=== PATIENT | male | born 1940 | race Caucasian/White ===

== ENCOUNTER 2020-09-28 13:43 | Outpatient (REF) | payer SELFPAY | END 2020-09-28 13:44 | disposition home or self-care (01) | LOC: HO.HAP 13:43 | PROVIDERS: PCP Internal Medicine; Referring Provider Internal Medicine; Visit Provider Internal Medicine | DX: Z13.89 Encounter for screening for other disorder (principal) | CPT/HCPCS: 92700 ==

== ENCOUNTER 2020-10-08 14:58 | Outpatient (REF) | payer MEDICARE, SELFPAY ==
[2020-10-08 16:42] LABS: Hematocrit 42.2 % (42-52); Hemoglobin 13.7 g/dl (14.0-18.0); Mean Corpuscular HGB Conc 32.5 g/dl (31.0-36.0); Mean Corpuscular Hemoglobin 32.9 pg (27.0-33.0); Mean Corpuscular Volume 101.2 fL (80-98); Mean Platelet Volume 9.8 fL (9.4-12.4); Platelet Count 200 X10*3/uL (160-400); Red Blood Count 4.17 X10*6/uL (4.60-5.80); Red Cell Distribution Width 13.5 % (11.0-16.0); White Blood Count 8.8 X10*3/uL (4.8-10.8)
[2020-10-08 16:47] LABS: Estimated Average Glucose 137 mg/dL; Hemoglobin A1c % 6.4 %
[2020-10-08 17:06] LABS: Alanine Aminotransferase 25 U/L (0-40); Albumin Level 3.9 g/dL (3.5-5.0); Alkaline Phosphatase 63 U/L (39-117); Anion Gap 12 (12-20); Aspartate Amino Transferase 22 U/L (5-37); Bilirubin Total 0.6 mg/dL (0.0-1.0); Blood Urea Nitrogen 17 mg/dL (9-16); Calcium 8.8 mg/dL (8.4-10.2); Carbon Dioxide 27 mmol/L (22-29); Chloride 104 mmol/L (96-108); Estimated Glomerular Filt Rate 51; Glucose Random 106 mg/dL (60-115); Potassium 4.2 mmol/l (3.3-5.1); Sodium 139 mmol/L (135-145); Total Protein 7.2 g/dL (6.5-8.0)
[2020-10-08 17:16] LABS: Uric Acid 5.5 mg/dL (3.4-7.0)
[2020-10-08 17:50] LABS: Folate > 20.0 ng/mL (> or = 4.0); Vitamin B12 767 pg/mL (200-900)
== END 2020-10-08 14:59 | disposition home or self-care (01) ==
LOC: HO.HMGCLDS 14:58
PROVIDERS: PCP Internal Medicine; Visit Provider Internal Medicine
DX: I10 Essential (primary) hypertension (principal); F03.90 Unspecified dementia, unspecified severity, without behavioral disturbance, psychotic disturbance, mood disturbance, and anxiety; E11.9 Type 2 diabetes mellitus without complications; E53.8 Deficiency of other specified B group vitamins
CPT/HCPCS: 36415; 80053; 82607; 82746; 83036; 84550; 85027

== ENCOUNTER 2020-10-15 07:59 | Outpatient (REF) | payer SELFPAY ==
--- NOTE | 2020-10-15 09:00 | MHC.AU.P13 ---
Hearing Instrument Follow-Up- Binaural Date of Visit: 10/15/20 Right Ear: Fashion Consultant: Phonak Model: AUDEO M90-312 Serial Number: [id number] Warranty: 01/18/2022 Battery Size: 312 Color: [place] [employer] Supervisor: 2S Type of Mold: CANAL LOCK SLIM TIP #[id number] Type of Wax Guard: CERUSTOP Dispensed By: [facility] Date of Fittin11/06/2018 Left Ear: Fashion Consultant: Phonak Model: AUDEO M90-312 Serial Number: [id number] Warranty: 01/18/2022 Battery Size: 312 Color: [place] [employer] Supervisor: 2S Type of Mold: CANAL LOCK SLIM TIP#[id number] Type of Wax Guard: CERUSTOP Dispensed By: [facility] Date of Fittin11/06/2018 Follow-Up Summary: Patient arrived to apple picker his slim tips. The left slim tip had previously been sent for courtesy repair. The right side was cracked, and a new slim tip had been ordered. The left hearing aid was in our repair drawer, and was given back to the patient. The new slim tips were coupled to the hearing aids. Patient reports they fit well and were comfortable. Paid $115, as quoted. Recommendations: Hearing instrument maintenance in 6 months, or sooner if needed. Diagnosis Code(s): Primary Diagnosis: H90.3 Bilateral Sensorineural Hearing Loss Services Performed: [facility] [place]: 115.00 Signature: Provider: Kitty Castillo CCC-A
== END 2020-10-15 08:00 | disposition home or self-care (01) ==
LOC: HO.HAP 07:59
PROVIDERS: PCP Internal Medicine; Referring Provider Internal Medicine; Visit Provider Internal Medicine
DX: Z46.1 Encounter for fitting and adjustment of hearing aid (principal); H90.3 Sensorineural hearing loss, bilateral
CPT/HCPCS: V5264

== ENCOUNTER 2021-05-30 16:04 | Outpatient (REF) | payer SELFPAY | END 2021-05-30 16:05 | disposition home or self-care (01) | LOC: HO.HAP 16:04 | PROVIDERS: Visit Provider Internal Medicine | DX: Z13.89 Encounter for screening for other disorder (principal) ==

== ENCOUNTER 2021-10-24 14:43 | Outpatient (REF) | payer MEDICARE, SELFPAY ==
[2021-10-24 16:49] LABS: Hematocrit 41.7 % (42.0-52.0); Mean Corpuscular HGB Conc 31.2 g/dl (31.0-36.0); Mean Corpuscular Hemoglobin 30.4 pg (27.0-33.0); Mean Corpuscular Volume 97.7 fL (80.0-98.0); Mean Platelet Volume 10.5 fL (9.4-12.4); Platelet Count 246 X10*3/uL (160-400); Red Blood Count 4.27 X10*6/uL (4.60-5.80); Red Cell Distribution Width 14.9 % (11.0-16.0); White Blood Count 7.9 X10*3/uL (4.8-10.8)
[2021-10-24 16:55] LABS: Estimated Average Glucose 126 mg/dL
[2021-10-24 17:10] LABS: Alanine Aminotransferase 21 U/L (0-40); Albumin Level 3.8 g/dL (3.5-5.0); Alkaline Phosphatase 61 U/L (39-117); Anion Gap 15 (12-20); Aspartate Amino Transferase 23 U/L (5-37); Bilirubin Total 0.3 mg/dL (0.0-1.0); Blood Urea Nitrogen 20 mg/dL (9-16); Carbon Dioxide 27 mmol/L (22-29); Chloride 103 mmol/L (96-108); Estimated Glomerular Filt Rate 60; Glucose Random 125 mg/dL (60-115); Iron 47 mcg/dL (45-160); Percent Iron Saturation 16 % (15-50); Potassium 4.8 mmol/L (3.3-5.1); Sodium 140 mmol/L (135-145); Total Iron Binding Capacity 301 mcg/dL (228-428); Total Protein 7.3 g/dL (6.5-8.0); Unsaturated Iron Binding 254 ug/dL
[2021-10-24 17:30] LABS: Vitamin D 25-OH Total 30.3 ng/mL (>30)
[2021-10-24 17:49] LABS: Vitamin B12 689 pg/mL (200-900)
[2021-10-24 17:50] LABS: Folate > 20.0 ng/mL (> or = 4.0)
== END 2021-10-24 14:44 | disposition home or self-care (01) ==
LOC: HO.HMGCLDS 14:43
PROVIDERS: PCP Internal Medicine; Visit Provider Internal Medicine
DX: E11.9 Type 2 diabetes mellitus without complications (principal); E53.8 Deficiency of other specified B group vitamins; E55.9 Vitamin D deficiency, unspecified; E78.5 Hyperlipidemia, unspecified
CPT/HCPCS: 36415; 80053; 82306; 82607; 82746; 83036; 83540; 85027

== ENCOUNTER 2021-12-17 14:43 | Outpatient (REF) | payer MEDICARE, SELFPAY ==
[2021-12-17 15:38] LABS: Appearance Urine CLEAR; Color Urine YELLOW; Glucose Urine UA NEG (NEG); Leukocyte Esterase Urine NEG (NEG); Nitrite Urine NEG (NEG); PH 5.5 (5.0-8.0); Specific Gravity - Urine 1.025 (1.005-1.025); Urine Blood NEG (NEG); Urine Ketones NEG (NEG); Urine Protein NEG (NEG-TRACE)
== END 2021-12-17 14:44 | disposition home or self-care (01) ==
LOC: HO.HMGCLNP 14:43
PROVIDERS: Visit Provider Internal Medicine
DX: R30.0 Dysuria (principal)
CPT/HCPCS: 81003

== ENCOUNTER 2022-03-18 14:32 | Outpatient (REF) | payer MEDICARE, SELFPAY ==
[2022-03-18 15:56] LABS: Anion Gap 15 (12-20); Blood Urea Nitrogen 35 mg/dL (9-16); Carbon Dioxide 25 mmol/L (22-29); Chloride 104 mmol/L (96-108); Estimated Glomerular Filt Rate 47; Potassium 4.8 mmol/L (3.3-5.1); Sodium 139 mmol/L (135-145)
== END 2022-03-18 14:33 | disposition home or self-care (01) ==
LOC: HO.HMGCLDS 14:32
PROVIDERS: PCP Internal Medicine; Visit Provider Internal Medicine
DX: R94.4 Abnormal results of kidney function studies (principal)
CPT/HCPCS: 36415; 80051; 82565; 84520

== ENCOUNTER 2022-06-02 14:49 | Outpatient (REF) | payer MEDICARE, SELFPAY ==
[2022-06-02 16:21] LABS: MANUAL DIFF FLAG NO
[2022-06-02 16:24] LABS: Basophils Absolute Auto 0.1 X10*3/uL (0.0-0.2); Basophils Percent Auto 0.7 % (0-2); Eosinophils Absolute Auto 0.6 X10*3/uL (0.0-0.4); Eosinophils Percent Auto 9.1 % (0-4); Hematocrit 41.8 % (42.0-52.0); Hemoglobin 13.7 g/dl (14.0-18.0); Imm Gran Abs Auto 0.01 X10*3/uL (0.00-0.03); Imm Gran Pct Auto 0.1 % (0.0-0.4); Lymphocytes Absolute Auto 1.7 X10*3/uL (1.2-4.9); Lymphocytes Percent Auto 25.9 % (20-40); Mean Corpuscular HGB Conc 32.8 g/dl (31.0-36.0); Mean Corpuscular Hemoglobin 32.5 pg (27.0-33.0); Mean Corpuscular Volume 99.1 fL (80.0-98.0); Mean Platelet Volume 10.7 fL (9.4-12.4); Monocytes Absolute Auto 0.8 X10*3/uL (0.1-1.2); Monocytes Percent Auto 11.7 % (2-11); Neutrophils Absolute Auto 3.5 x10*3/uL (2.0-8.3); Neutrophils Percent Auto 52.5 % (45-73); Platelet Count 184 X10*3/uL (160-400); Red Blood Count 4.22 X10*6/uL (4.60-5.80); Red Cell Distribution Width 14.9 % (11.0-16.0); White Blood Count 6.7 X10*3/uL (4.8-10.8)
[2022-06-02 16:47] LABS: Alanine Aminotransferase 15 U/L (0-40); Albumin Level 3.9 g/dL (3.5-5.0); Alkaline Phosphatase 45 U/L (39-117); Anion Gap 13 (12-20); Aspartate Amino Transferase 21 U/L (5-37); Bilirubin Total 0.4 mg/dL (0.0-1.0); Blood Urea Nitrogen 20 mg/dL (9-16); Calcium 8.9 mg/dL (8.4-10.2); Carbon Dioxide 25 mmol/L (22-29); Chloride 108 mmol/L (96-108); Cholesterol 120 mg/dL; Estimated Average Glucose 131 mg/dL; Estimated Glomerular Filt Rate > 60; Glucose Random 98 mg/dL (60-115); HDL Cholesterol 32 mg/dL; Hemoglobin A1c % 6.2 %; Iron 48 mcg/dL (45-160); LDL Cholesterol Calculated 24 mg/dl; Percent Iron Saturation 16 % (15-50); Potassium 4.1 mmol/L (3.3-5.1); Sodium 142 mmol/L (135-145); Total Iron Binding Capacity 304 mcg/dL (228-428); Total Protein 6.8 g/dL (6.5-8.0); Triglycerides 324 mg/dL; Unsaturated Iron Binding 256 ug/dL
[2022-06-02 17:18] LABS: Vitamin B12 497 pg/mL (200-900)
== END 2022-06-02 14:50 | disposition home or self-care (01) ==
LOC: HO.HMGCLDS 14:49
PROVIDERS: PCP Internal Medicine; Visit Provider Internal Medicine
DX: E11.9 Type 2 diabetes mellitus without complications (principal); I10 Essential (primary) hypertension; I50.9 Heart failure, unspecified; J84.10 Pulmonary fibrosis, unspecified; E78.5 Hyperlipidemia, unspecified; E53.8 Deficiency of other specified B group vitamins
CPT/HCPCS: 36415; 80053; 80061; 82607; 83036; 83540; 85025

== ENCOUNTER 2022-08-30 15:19 | Outpatient (REF) | payer MEDICARE, SELFPAY ==
[2022-08-30 16:26] LABS: MANUAL DIFF FLAG NO
[2022-08-30 16:38] LABS: Estimated Average Glucose 134 mg/dL; Hemoglobin A1c % 6.3 %
[2022-08-30 16:42] LABS: Basophils Absolute Auto 0.1 X10*3/uL (0.0-0.2); Basophils Percent Auto 0.8 % (0-2); Eosinophils Absolute Auto 0.3 X10*3/uL (0.0-0.4); Eosinophils Percent Auto 4.4 % (0-4); Hematocrit 42.2 % (42.0-52.0); Hemoglobin 13.8 g/dl (14.0-18.0); Imm Gran Abs Auto 0.03 X10*3/uL (0.00-0.03); Imm Gran Pct Auto 0.4 % (0.0-0.4); Lymphocytes Absolute Auto 1.8 X10*3/uL (1.2-4.9); Lymphocytes Percent Auto 24.8 % (20-40); Mean Corpuscular HGB Conc 32.7 g/dl (31.0-36.0); Mean Corpuscular Hemoglobin 32.2 pg (27.0-33.0); Mean Corpuscular Volume 98.4 fL (80.0-98.0); Mean Platelet Volume 11.2 fL (9.4-12.4); Monocytes Absolute Auto 0.8 X10*3/uL (0.1-1.2); Neutrophils Absolute Auto 4.3 x10*3/uL (2.0-8.3); Neutrophils Percent Auto 58.6 % (45-73); Platelet Count 151 X10*3/uL (160-400); Red Blood Count 4.29 X10*6/uL (4.60-5.80); Red Cell Distribution Width 13.8 % (11.0-16.0); White Blood Count 7.4 X10*3/uL (4.8-10.8)
[2022-08-30 16:59] LABS: Alanine Aminotransferase 18 U/L (0-40); Albumin Level 3.8 g/dL (3.5-5.0); Alkaline Phosphatase 48 U/L (39-117); Anion Gap 13 (12-20); Aspartate Amino Transferase 24 U/L (5-37); Bilirubin Total 0.6 mg/dL (0.0-1.0); Blood Urea Nitrogen 25 mg/dL (9-16); Carbon Dioxide 27 mmol/L (22-29); Chloride 106 mmol/L (96-108); Estimated Glomerular Filt Rate 52; Glucose Fasting 109 mg/dL (60-99); Potassium 4.4 mmol/L (3.3-5.1); Sodium 142 mmol/L (135-145); Total Protein 6.7 g/dL (6.5-8.0)
== END 2022-08-30 15:20 | disposition home or self-care (01) ==
LOC: HO.HMGCLDS 15:19
PROVIDERS: PCP Internal Medicine; Visit Provider Internal Medicine
DX: E78.5 Hyperlipidemia, unspecified (principal); E11.9 Type 2 diabetes mellitus without complications
CPT/HCPCS: 36415; 80053; 83036; 85025

== ENCOUNTER → 2023-01-18 14:56 | Outpatient (BNVA) | payer MEDICARE, SELFPAY | PROVIDERS: PCP Internal Medicine; Visit Provider Nurse Practitioner Family | DX: G31.84 Mild cognitive impairment of uncertain or unknown etiology (principal) | CPT/HCPCS: 99202 ==

== ENCOUNTER 2023-02-07 09:53 | Outpatient (REF) | payer MEDICARE, SELFPAY ==
--- NOTE | ~2023-02-07 | XR_ITS ---
EXAMINATION: XR CHEST CLINICAL INFORMATION: Shortness of breath. COMPARISON: 08/07/2018 chest radiographs. TECHNIQUE: 2 views of the chest were obtained. FINDINGS: Mild patchy opacities are seen bilaterally, left greater than right. The heart and mediastinal structures are unremarkable. XR/XR chest 2V IMPRESSION: Mild patchy opacities bilaterally, some of which are similar to the 2018 study, social in the right upper lobe. This could represent advancement of chronic interstitial disease however an acute on chronic infectious/inflammatory process cannot be excluded. Short-term radiographic follow-up is recommended after treatment to assess for change.
[2023-02-07 11:43] LABS: Hematocrit 40.2 % (42.0-52.0); Hemoglobin 13.1 g/dl (14.0-18.0); Mean Corpuscular HGB Conc 32.6 g/dl (31.0-36.0); Mean Corpuscular Hemoglobin 31.7 pg (27.0-33.0); Mean Corpuscular Volume 97.3 fL (80.0-98.0); Mean Platelet Volume 10.6 fL (9.4-12.4); Platelet Count 185 X10*3/uL (160-400); Red Blood Count 4.13 X10*6/uL (4.60-5.80); Red Cell Distribution Width 15.2 % (11.0-16.0); White Blood Count 10.5 X10*3/uL (4.8-10.8)
[2023-02-07 12:23] LABS: Alanine Aminotransferase 12 U/L (0-40); Albumin Level 3.5 g/dL (3.5-5.0); Alkaline Phosphatase 62 U/L (39-117); Anion Gap 13 (12-20); Aspartate Amino Transferase 16 U/L (5-37); Bilirubin Direct 0.3 mg/dL (0.0-0.5); Bilirubin Total 1.1 mg/dL (0.0-1.0); Blood Urea Nitrogen 18 mg/dL (9-16); Calcium 8.6 mg/dL (8.4-10.2); Carbon Dioxide 27 mmol/L (22-29); Chloride 108 mmol/L (96-108); Cholesterol 139 mg/dL; Estimated Glomerular Filt Rate 58; Glucose Random 127 mg/dL (60-115); HDL Cholesterol 40 mg/dL; LDL Cholesterol Calculated 72 mg/dl; Potassium 4.1 mmol/L (3.3-5.1); Sodium 144 mmol/L (135-145); Total Protein 6.5 g/dL (6.5-8.0); Triglycerides 136 mg/dL
[2023-02-07 13:07] LABS: Erythrocyte Sedimentation Rate 79 MM/HR (0-15)
== END 2023-02-07 09:54 | disposition home or self-care (01) ==
LOC: HO.HMGCX 09:53
PROVIDERS: PCP Internal Medicine; Visit Provider Internal Medicine
DX: R06.02 Shortness of breath (principal); I10 Essential (primary) hypertension
CPT/HCPCS: 36415; 71046; 80048; 80061; 80076; 85027; 85652

== ENCOUNTER 2023-02-17 14:04 | Outpatient (REF) | payer MEDICARE, SELFPAY ==
[2023-02-17 15:56] LABS: Appearance Urine Clear; Color Urine Yellow; Glucose Urine UA Negative (Negative); Leukocyte Esterase Urine Moderate (2+) (Negative); Nitrite Urine Negative (Negative); PH 5.5 (5.0-9.0); Specific Gravity - Urine 1.025 (1.005-1.025); UMIC TRIGGER UACC YES; Urine Blood Negative (Negative); Urine Ketones Trace mg/dL (Negative); Urine Protein Trace mg/dL (Neg-Trace)
[2023-02-17 16:06] LABS: Bacteria Urine None Seen (None Seen); RBC Urine 0-2 /HPF (0-2); UACC Culture Trigger YES
== END 2023-02-17 14:05 | disposition home or self-care (01) ==
LOC: HO.HMGCLNP 14:04
PROVIDERS: Visit Provider Internal Medicine
DX: R39.15 Urgency of urination (principal)
CPT/HCPCS: 81001; 81003; 87086

== ENCOUNTER 2023-02-28 06:34 | Day surgery (SDC) | payer MEDICARE, SELFPAY ==
--- NOTE | 2023-02-27 13:41 | HO.ANESPROP2 ---
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 No EP issue or HF symptoms so treatment deferred. Last cardiac office visit 11/2022. Stable. 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) Vitamin D deficiency (Acute) Vitamin B12 deficiency (Acute) Hyperlipidemia (Acute) Diabetes (Acute) Past Medical History Medical History CHF (congestive heart failure) Colon cancer Dementia (~12/26/22) Diabetes Dysuria GBS (Guillain [place] syndrome) Gout Hyperlipidemia Obesity Pulmonary fibrosis Sarcoidosis Vitamin B12 deficiency Vitamin D deficiency Family History Family History Father CHF (congestive heart failure) Alzheimer disease Mother Pancreatic cancer Brother Pancreatic cancer Kidney disease Surgical History Surgical History History of appendectomy History of colon surgery History of colonoscopy History of gynecomastia History of wrist fracture Hx of cataract surgery Social History Social History Housing: House Alcohol intake: current Alcohol intake frequency: does not drink Patient Tobacco Use Status: Former Tobacco user e-Cigarette/Vaping Use: Never Used Are you DNR?: No Advance Directives: No Advance Directives Information Provided: Yes Current occupational status: retired Cognitive needs: No Hearing needs: Yes Vision needs: Yes Meds Allergies Allergy/AdvReac Type Severity Reaction Status Date / Time No Known Allergies Allergy Verified 02/07/23 10:21 Home Medications Medication Instructions Recorded Confirmed Last Taken Type fluticasone propionate 50 2 spray intranasal DAILY 10/08/20 02/07/23 Unknown History mcg/actuation nasal spray,suspension (Flonase Allergy Relief) mecobalamin (vitamin B12) 1,000 1,000 mcg sublingual DAILY 10/08/20 02/07/23 Unknown History mcg disintegrating tablet,sublingual multivitamin 1 tab PO DAILY 10/08/20 02/07/23 Unknown History omega-3 fatty acids 1,000 mg 1,000 mg PO DAILY 10/08/20 02/07/23 02/25/23 History capsule (Fish Oil Concentrate) dorzolamide 2 %-timolol 0.5 % (PF) 1 drp ophthalmic (eye) BID 10/24/21 02/07/23 Unknown History eye drops guaifenesin 100 mg/5 mL oral 200 mg PO Q4H PRN 10/24/21 02/07/23 Unknown History liquid (Mucinex Fast-Max Chest Congestion) latanoprost 0.005 % eye drops 1 drp ophthalmic (eye) DAILY 10/24/21 02/07/23 Unknown History calcium carbonate 600 mg-vitamin cap PO 03/24/22 02/07/23 Unknown History D3 25 mcg (1,000 unit) capsule ascorbate calcium (vitamin C) 500 500 mg PO DAILY 06/02/22 02/07/23 Unknown History mg tablet cholecalciferol (vitamin D3) 50 10 mcg PO DAILY 06/02/22 02/07/23 Unknown History mcg (2,000 unit) capsule fluocinonide 0.05 % topical cream 1 appl topical BID 06/02/22 02/07/23 Unknown History levocetirizine 5 mg tablet (Xyzal) 5 mg PO DAILY 06/02/22 02/07/23 Unknown History acetaminophen 500 mg tablet 500 mg PO Q6H PRN 01/18/23 02/07/23 Unknown History (Tylenol Extra Strength) Exam Exam Date and Time: February 27, 2023 1341 Pertinent Lab Results Pertinent Lab Results: Laboratory Tests 02/07/23 02/07/23 10:24 10:24 WBC 10.5 Hgb 13.1 L Hct 40.2 L Plt Count 185 Sodium 144 Potassium 4.1 Chloride 108 Carbon Dioxide 27 BUN 18 H Creatinine 1.20 Narrative Narrative: EKG 07/2022 SB @ 51 Otherwise nml Cardiac MRI 08/2022 Nml LV size with mild global hypokinesia LVEF 50% Epicardial delayed enhancement signal in basal/mid to inferior lateral wall, in keeping with sarcoid, differential including myocarditis Nml size RV. RVEF 49% Mediastinal adenopathy and increased interstitial lung markings, presumably relating to sarcoid NM Myocard SPECT 03/2022 1. Myocard perfusion imaging is normal without any fixed or reversible perfusion defect after regadenoson infusion. 2. LV function is normal with EF of 70% at rest and >75% after IV admin of Regadenoson with nml wall motion and thickening. 3. EKG portion of stress test reported seperately. Carotid Duplex Scan 08/2018 Bilat 50-69% stenosis, favor lower end of the range Assessment and Plan Assessment Anesthesia Assessment: Chart Reviewed Documented by User: Mariana Banks MD 02/28/23 08:02 [facility] Active Problems Active Problems: All Active Problems (Updated 02/28/23 @ 07:25 by Mariana Banks MD) Urticaria (Acute) Pelvic pain (Acute) Ankle pain, right (Acute) Ankle pain, left (Acute) Neck pain (Acute) Balance disorder (Acute) Risk for falls (Acute) Shortness of breath (Acute) Dementia (Acute ~12/26/22) Sarcoidosis (Acute) Pulmonary fibrosis (Acute) CHF (congestive heart failure) (Acute) Dysuria (Acute) 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 Not using CPAP machine Gout Past Medical History Medical History CHF (congestive heart failure) Colon cancer Dementia (~12/26/22) Diabetes Dysuria GBS (Guillain [place] syndrome) Gout Hyperlipidemia Obesity Pulmonary fibrosis Sarcoidosis Vitamin B12 deficiency Vitamin D deficiency Family History Family History Father CHF (congestive heart failure) Alzheimer disease Mother Pancreatic cancer Brother Pancreatic cancer Kidney disease Family history of problems with anesthesia: No Surgical History Surgical History History of appendectomy History of colon surgery History of colonoscopy History of gynecomastia History of wrist fracture Hx of cataract surgery History of Problems with Anesthesia: No Social History Social History Housing: House Alcohol intake: current Alcohol intake frequency: does not drink Patient Tobacco Use Status: Former Tobacco user e-Cigarette/Vaping Use: Never Used Are you DNR?: No Advance Directives: No Advance Directives Information Provided: Yes Current occupational status: retired Cognitive needs: No Hearing needs: Yes Vision needs: Yes Meds Allergies Allergy/AdvReac Type Severity Reaction Status Date / Time No Known Allergies Allergy Verified 02/07/23 10:21 Home Medications Medication Instructions Recorded Confirmed Last Taken Type fluticasone propionate 50 2 spray intranasal DAILY 10/08/20 02/07/23 Unknown History mcg/actuation nasal spray,suspension (Flonase Allergy Relief) mecobalamin (vitamin B12) 1,000 1,000 mcg sublingual DAILY 10/08/20 02/07/23 Unknown History mcg disintegrating tablet,sublingual multivitamin 1 tab PO DAILY 10/08/20 02/07/23 Unknown History omega-3 fatty acids 1,000 mg 1,000 mg PO DAILY 10/08/20 02/07/23 02/25/23 History capsule (Fish Oil Concentrate) dorzolamide 2 %-timolol 0.5 % (PF) 1 drp ophthalmic (eye) BID 10/24/21 02/07/23 Unknown History eye drops guaifenesin 100 mg/5 mL oral 200 mg PO Q4H PRN 10/24/21 02/07/23 Unknown History liquid (Mucinex Fast-Max Chest Congestion) latanoprost 0.005 % eye drops 1 drp ophthalmic (eye) DAILY 10/24/21 02/07/23 Unknown History calcium carbonate 600 mg-vitamin cap PO 03/24/22 02/07/23 Unknown History D3 25 mcg (1,000 unit) capsule ascorbate calcium (vitamin C) 500 500 mg PO DAILY 06/02/22 02/07/23 Unknown History mg tablet cholecalciferol (vitamin D3) 50 10 mcg PO DAILY 06/02/22 02/07/23 Unknown History mcg (2,000 unit) capsule fluocinonide 0.05 % topical cream 1 appl topical BID 06/02/22 02/07/23 Unknown History levocetirizine 5 mg tablet (Xyzal) 5 mg PO DAILY 06/02/22 02/07/23 Unknown History acetaminophen 500 mg tablet 500 mg PO Q6H PRN 01/18/23 02/07/23 Unknown History (Tylenol Extra Strength) Exam Height,Weight and Vital Signs: Height 5 ft 7 in Weight 79.379 kg Vital Signs Temp Pulse Resp BP Pulse Ox O2 Del Method O2 Flow Rate 02/28/23 06:38 98 F 66 20 129/67 95 Nasal Cannula 2 Pertinent Lab Results Pertinent Lab Results: Laboratory Tests 02/07/23 02/07/23 10:24 10:24 WBC 10.5 Hgb 13.1 L Hct 40.2 L Plt Count 185 Sodium 144 Potassium 4.1 Chloride 108 Carbon Dioxide 27 BUN 18 H Creatinine 1.20 Lab Results 02/28/23 Range/Units 06:58 POC Glucose 109 (60-115) mg/dL Airway Mallampati Class: III TM Dist: >3cm Neck ROM: Full Loose/Missing/Broken Teeth: No (Denies broken, loose, missing teeth) Heart: RRR Lungs: CTAB. Diminished Other: Facial redness. Patient states from shaving Assessment and Plan Assessment Anesthesia Assessment: Anesthesia Plan Discussed Final Anesthetic Review Family History of Problems with Anesthesia: No History of Problems with Anesthesia: No NPO: Yes ASA Class: III Final Preanesthetic Review: No Changes in Pt Med Stat, Meds/Allgs Chart Reviewed, Consent Obtained/Reviewed and Anes Risks/Benef Reviewed Patient Risk: Intermediate Procedure Risk: Low Assessment/Block/Sedation in SS: Assess/Block/Sedation-SS Anesthetic Plan Anesthetic Plan: MAC: Disposition: Standard PACU
[2023-02-28 06:02] VITALS: BMI 27.3
[2023-02-28 06:38] VITALS: BP 129/67; PULSE 66; RESP 20; TEMP 36.6; O2SAT 95
[2023-02-28 07:03] LABS: Glucose, Whole Blood 109 mg/dL (60-115)
[2023-02-28] MEDS: Lactated Ringers 1,000 ML 100 ML IVCONT (07:18)
[2023-02-28 08:28] VITALS: BP 92/44; PULSE 69; RESP 30; TEMP 36.2; O2SAT 96
--- NOTE | 2023-02-28 08:31 | P.BOP_ITS ---
Brief Operative Note Date of Service: 02/28/23 Pre-op diagnosis: Screening Post-op diagnosis: other (Diverticulosis) Procedure: Colonoscopy to the anastomosis and small bowel Surgeon: Thomas Ibarra Anesthesia: MAC Was an Manager Of Pmo used for this Procedure?: No Estimated blood loss (mL): 0 Pathology: none sent Condition: stable Disposition: PACU
[2023-02-28 08:34] VITALS: BP 100/53
[2023-02-28 08:44] VITALS: BP 107/52; PULSE 69; RESP 12; TEMP 36.4; O2SAT 98
--- NOTE | 2023-02-28 10:13 | OP_ITS ---
DATE OF SERVICE: 02/28/2023 SURGEON: Thomas Ibarra MD INDICATIONS: The patient presents for colorectal cancer screening in regard to previous history of colon cancer and tubular adenoma of the colon. Full consent has been obtained from him for this, including risks of bleeding and perforation. PREOPERATIVE DIAGNOSIS: POSTOPERATIVE DIAGNOSIS: PROCEDURE PERFORMED: Colonoscopy to the anastomosis and small bowel. ESTIMATED BLOOD LOSS: COMPLICATIONS: ANESTHESIA: Monitored anesthesia care. ASSISTANTS: SPECIMENS: PREOPERATIVE DIAGNOSES: Colorectal cancer screening, personal history of colon cancer, and personal history of tubular adenoma of the colon. POSTOPERATIVE DIAGNOSES: Colorectal cancer screening, personal history of colon cancer, personal history of tubular adenoma of the colon, mild diverticulosis, and small internal hemorrhoids. DESCRIPTION OF PROCEDURE: The patient was placed in the left lateral decubitus position. The digital rectal exam revealed no abnormalities. The Olympus video pediatric colonoscope was entered into the rectum and advanced easily to the region of the anastomosis. The anastomosis appeared completely normal. The small bowel was easily cannulated and appeared normal. The scope was withdrawn back in the colon. The anastomosis was well visualized and appeared normal without any sign of mass nor ulceration. The scope was then slowly withdrawn assessing all mucosal surface carefully. Preparation was excellent. I do not visualize any sign of polyps, colitis, nor angiodysplasia. There was mild amount of sigmoid diverticulosis. In the rectum, the scope was retroflexed visualizing small internal hemorrhoids, but no other pathology. The rectal mucosa appeared normal. The scope was straightened out and withdrawn from the patient. He tolerated the procedure well and was returned to the recovery area in stable condition. IMPRESSION: 1. Mild sigmoid diverticulosis. 2. Small internal hemorrhoids. 3. Normal anastomosis. PLAN: Given today's negative exam and his age, I do not think he will need any further screening colonoscopies at this point given the fact that his colon cancer was in 2018 and he had a negative colonoscopy in 2020, as well as today. He was advised to continue his Cholestyramine for relief of his diarrhea. He would otherwise see me on a p.r.n. basis. This has been discussed with his daughter. MD JOSE ARMANDO Guido/CHASIDY / [phone] ISIAH
== END 2023-02-28 09:20 | disposition home or self-care (01) ==
PROVIDERS: PCP Internal Medicine; Visit Provider Internal Medicine
PROC: 0DJD8ZZ Inspection of Lower Intestinal Tract, Via Natural or Artificial Opening Endoscopic (ICD-10-PCS; CPT 45378; principal; 2023-02-28 07:30)
DX: Z12.11 Encounter for screening for malignant neoplasm of colon (principal); Z85.038 Personal history of other malignant neoplasm of large intestine; Z90.49 Acquired absence of other specified parts of digestive tract; Z98.0 Intestinal bypass and anastomosis status; Z86.010 Personal history of colon polyps; K57.30 Diverticulosis of large intestine without perforation or abscess without bleeding; K64.8 Other hemorrhoids; R19.7 Diarrhea, unspecified; K22.10 Ulcer of esophagus without bleeding; K26.9 Duodenal ulcer, unspecified as acute or chronic, without hemorrhage or perforation; I11.0 Hypertensive heart disease with heart failure; I50.9 Heart failure, unspecified; D86.9 Sarcoidosis, unspecified; G61.0 Guillain-Barre syndrome; E78.5 Hyperlipidemia, unspecified; G47.33 Obstructive sleep apnea (adult) (pediatric); E11.9 Type 2 diabetes mellitus without complications; Z79.84 Long term (current) use of oral hypoglycemic drugs; Z79.899 Other long term (current) drug therapy; Z79.51 Long term (current) use of inhaled steroids; Z99.89 Dependence on other enabling machines and devices
CPT/HCPCS: G0105; 82947

== ENCOUNTER → 2023-04-20 14:51 | Outpatient (BNVA) | payer MEDICARE, SELFPAY | PROVIDERS: PCP Internal Medicine; Visit Provider Nurse Practitioner Family | DX: F03.90 Unspecified dementia, unspecified severity, without behavioral disturbance, psychotic disturbance, mood disturbance, and anxiety (principal); J84.9 Interstitial pulmonary disease, unspecified; Z79.52 Long term (current) use of systemic steroids; Z99.81 Dependence on supplemental oxygen; Z79.899 Other long term (current) drug therapy | CPT/HCPCS: 99212 ==

== ENCOUNTER 2023-06-25 10:57 | Outpatient (AMB) | payer MEDICARE, SELFPAY ==
[2023-06-25 11:00] VITALS: BP 118/68; PULSE 86; O2SAT 95; BMI 30.1
--- NOTE | 2023-06-25 11:00 | MHC.PC.OV ---
Vital Signs 06/25/23 11:00 Height 5 ft 7 in Weight 192 lb BMI 30.1 BP 118/68 Blood Pressure Location Lt brachial Position Sitting Pulse 86 Pulse Source Pulse Oximeter Pulse Oximetry (%) 95 Oxygen Delivery Method Nasal Cannula Intake Visit Reasons: 6 month follow up DM Intake Note: Pt is here today for 6 months follow up visit on DM. Allergies No Known Allergies Allergy (Verified 06/25/23 11:03) Medication List - Last Reconciled 06/25/23 by Cele Dee MD acetaminophen (Tylenol Extra Strength) 500 mg PO Q6H PRN albuterol sulfate 90 mcg/actuation (Ventolin HFA) 1 inh inhalation QID PRN allopurinol 300 mg PO DAILY ascorbate calcium (vitamin C) 500 mg PO DAILY calcium carbonate-vitamin D3 600 mg-25 mcg (1,000 unit) 600 mg 1200mg cholecalciferol (vitamin D3) 10 mcg PO DAILY cholestyramine-aspartame 4 gram (Cholestyramine Light) 2 grams PO BID donepezil 10 mg PO DAILY 90 days dorzolamide-timolol (PF) 2-0.5 % 1 drp ophthalmic (eye) BID fluocinonide 0.05% 1 appl topical BID fluticasone propionate 50 mcg/actuation (Flonase Allergy Relief) 2 sprays intranasal DAILY furosemide 20 mg PO Q OTHER DAY guaifenesin (Mucinex Fast-Max Chest Congestion) 200 mg PO Q4H PRN Lactobacillus acidophilus (Acidophilus capsule) 5 mg PO DAILY latanoprost 0.005% 1 drp ophthalmic (eye) DAILY levocetirizine (Xyzal) 5 mg PO DAILY lidocaine 4% (Aspercreme (lidocaine)) 1 patch topical DAILY PRN loperamide 2 mg PO Q6H PRN mecobalamin (vitamin B12) 1,000 mcg sublingual DAILY memantine 14 mg PO DAILY 30 days miscellaneous medical supply 1 ea miscellaneous .qd multivitamin 1 tab PO DAILY omega-3 fatty acids (Fish Oil Concentrate) 1,000 mg PO DAILY pantoprazole 40 mg PO DAILY prednisone 5 mg PO DAILY sildenafil (Viagra) 100 mg PO DAILY PRN simvastatin 40 mg PO BEDTIME Tobacco use date assessed: 06/25/23 Fall risk assessment: 1 Fall in past year Last assessed Fall Risk: 06/25/23 Dental Screening Dental Screen Date: 06/25/23 Did you have a dental visit in the last 12 months?: Yes Did you have a dental problem in the last 6 months where you did not have access to dental care?: No Was dental information given to patient?: Patient has dentist HPI 6 month follow up DM HPI Details Pt presents for f/u diet controlled DM 2, 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 Patient lives alone in the house and his daughter visits him once a week. The family members are concerned about patient not taking his medications on regular basis and sleeping during a day. [facility] Medical History CHF (congestive heart failure) Colon cancer Dementia (~12/26/22) Diabetes Dysuria GBS (Guillain [place] syndrome) Gout History of colon cancer Hyperlipidemia Obesity Pulmonary fibrosis Sarcoidosis Vitamin B12 deficiency Vitamin D deficiency Surgical History History of appendectomy History of colon surgery History of colonoscopy History of gynecomastia History of wrist fracture Hx of cataract surgery Family History Father CHF (congestive heart failure) Alzheimer disease Mother Pancreatic cancer Brother Pancreatic cancer Kidney disease Social History Housing: House Alcohol intake: current Alcohol intake frequency: holidays/special occasions only Patient Tobacco Use Status: Former Tobacco user e-Cigarette/Vaping Use: Never Used Current occupational status: retired Cognitive needs: No Hearing needs: Yes Vision needs: Yes Questionnaire Thrive Questionnaire Date Thrive assessed: 01/13/22 AUDIT C Alcohol Use Questionnaire (AUDIT-C) 1. How often do you have a drink containing alcohol?: Never 3. How often do you have six or more drinks on one occasion?: Never Total Score: 0 GILBERTO-7 AMB Questionnaire GILBERTO-7 Date GILBERTO - 7 assessed: 01/13/22 Source: Developed by Drs. Thomas Bryson, Sandy Bynum, Caio Granados and colleagues, with an educational christofer from [employer]. Review of Systems Const All systems reviewed & are unremarkable except as noted in HPI and below Reports no additional complaints Eyes Reports no additional complaints ENT Reports no additional complaints Card Reports no additional complaints Resp Reports no additional complaints GI Reports no additional complaints Reports no additional complaints Physical exam (Primary Care) Vital Signs: Last Vital Signs Pulse 86 06/25/23 11:00 BP 118/68 06/25/23 11:00 Pulse Ox 95 06/25/23 11:00 Oxygen Delivery Method Nasal Cannula 06/25/23 11:00 BMI result Body Mass Index 30.1 Tobacco/Smoking Status: Tobacco use Status Tobacco use date assessed 06/25/23 06/25/23 11:09 Patient Tobacco Use Status Former Tobacco user 06/25/23 11:09 e-Cigarette/Vaping Use Never Used 06/25/23 11:09 Thrive Assessment: Date of Thrive Assessment Date Thrive assessed 01/13/22 06/25/23 11:09 Const General: no acute distress HENMT Face and sinus: Yes normal facial exam Eyes General: appearance normal, both eyes and all related structures Neck Neck: Yes supple Resp Effort & Inspection: normal respiratory effort Auscultation: diminished lung sounds Cardio Rhythm: regular rhythm Heart sounds: S1 normal heart sound present and S2 normal heart sound present GI Inspection: Yes normal to inspection Palpation (GI): Soft to palpation Percussion: Yes normal to percussion Auscultation: normal bowel sounds Assessment and Plan Assessment & Plan (1) Sarcoidosis: Comment: mediastinum, hilum, retroperitoneum CT chest and abd 08/2019 stable, 12/2019, f/u [facility] Pulmonary Code(s): D86.9 - Sarcoidosis, unspecified Plan: Follow-up with pulmonology on supplemental O2 (2) Diabetes: Comment: A1C <9 Code(s): E11.9 - Type 2 diabetes mellitus without complications Plan: A1c is 6.9, continue ADA diet increase physical activity. Patient declined taking medications he will follow-up in 6 months with a fasting labs before (3) Hyperlipidemia: Code(s): E78.5 - Hyperlipidemia, unspecified Plan: On statin (4) Vitamin B12 deficiency: Code(s): E53.8 - Deficiency of other specified B group vitamins Plan: Continue B12 supplement (5) Dementia: Onset Date: ~12/26/22 Code(s): F03.90 - Unspecified dementia, unspecified severity, without behavioral disturbance, psychotic disturbance, mood disturbance, and anxiety Plan: For worsening dementia patient was advised to discuss it with his daughter to look into assisted living facility. He was advised to increase social interaction and physical activity. Patient will return in 6 months with a fasting labs before Orders: Orders Vitamin B12 and Folate 6 Months D86.9 - Sarcoidosis, unspecified, E11.9 - Type 2 diabetes mellitus without complications, E53.8 - Deficiency of other specified B group vitamins, E78.5 - Hyperlipidemia, unspecified Comprehensive [place]. Panel Fast 6 Months D86.9 - Sarcoidosis, unspecified, E11.9 - Type 2 diabetes mellitus without complications, E53.8 - Deficiency of other specified B group vitamins, E78.5 - Hyperlipidemia, unspecified Hemoglobin A1c 6 Months D86.9 - Sarcoidosis, unspecified, E11.9 - Type 2 diabetes mellitus without complications, E53.8 - Deficiency of other specified B group vitamins, E78.5 - Hyperlipidemia, unspecified Lipid Panel 6 Months D86.9 - Sarcoidosis, unspecified, E11.9 - Type 2 diabetes mellitus without complications, E53.8 - Deficiency of other specified B group vitamins, E78.5 - Hyperlipidemia, unspecified Complete Blood Count Auto Diff 6 Months D86.9 - Sarcoidosis, unspecified, E11.9 - Type 2 diabetes mellitus without complications, E53.8 - Deficiency of other specified B group vitamins, E78.5 - Hyperlipidemia, unspecified Coding Level of Care Code Est Pt Level 4 (15260) Diagnoses Sarcoidosis D86.9 Diabetes E11.9 Hyperlipidemia E78.5 Vitamin B12 deficiency E53.8 Dementia F03.90
== END 2023-06-25 11:53 | disposition home or self-care (01) ==
PROVIDERS: Visit Provider Internal Medicine
DX: E11.9 Type 2 diabetes mellitus without complications (principal); F03.90 Unspecified dementia, unspecified severity, without behavioral disturbance, psychotic disturbance, mood disturbance, and anxiety; D86.9 Sarcoidosis, unspecified; E78.5 Hyperlipidemia, unspecified; E53.8 Deficiency of other specified B group vitamins
CPT/HCPCS: 99214

== ENCOUNTER 2023-06-26 14:52 | Outpatient (AMB) | payer MEDICARE, SELFPAY ==
--- NOTE | 2023-06-26 15:06 | AM.OFFWIN_ITS ---
Intake Vital Signs 06/26/23 15:12 Weight 192 lb BP 120/72 Blood Pressure Location Lt brachial Position Sitting Pulse 78 Pulse Source Pulse Oximeter Pulse Oximetry (%) 90 L Oxygen Delivery Method Room Air Intake Visit Reasons: EP, Bilateral ear wax removal Intake Note: Patient here because he has an appt for his hearing aids tomorrow and would like to have ears flushed before it. Patient Tobacco Use Status: Former Tobacco user Allergies No Known Allergies Allergy (Verified 06/26/23 15:36) Medication List - Last Reconciled 06/26/23 by Oh Simon MD acetaminophen (Tylenol Extra Strength) 500 mg PO Q6H PRN albuterol sulfate 90 mcg/actuation (Ventolin HFA) 1 inh inhalation QID PRN allopurinol 300 mg PO DAILY ascorbate calcium (vitamin C) 500 mg PO DAILY calcium carbonate-vitamin D3 600 mg-25 mcg (1,000 unit) 600 mg 1200mg cholecalciferol (vitamin D3) 10 mcg PO DAILY cholestyramine-aspartame 4 gram (Cholestyramine Light) 2 grams PO BID donepezil 10 mg PO DAILY 90 days dorzolamide-timolol (PF) 2-0.5 % 1 drp ophthalmic (eye) BID fluocinonide 0.05% 1 appl topical BID fluticasone propionate 50 mcg/actuation (Flonase Allergy Relief) 2 sprays intranasal DAILY furosemide 20 mg PO Q OTHER DAY guaifenesin (Mucinex Fast-Max Chest Congestion) 200 mg PO Q4H PRN Lactobacillus acidophilus (Acidophilus capsule) 5 mg PO DAILY latanoprost 0.005% 1 drp ophthalmic (eye) DAILY levocetirizine (Xyzal) 5 mg PO DAILY lidocaine 4% (Aspercreme (lidocaine)) 1 patch topical DAILY PRN loperamide 2 mg PO Q6H PRN mecobalamin (vitamin B12) 1,000 mcg sublingual DAILY memantine 14 mg PO DAILY 30 days miscellaneous medical supply 1 ea miscellaneous .qd multivitamin 1 tab PO DAILY omega-3 fatty acids (Fish Oil Concentrate) 1,000 mg PO DAILY pantoprazole 40 mg PO DAILY prednisone 5 mg PO DAILY sildenafil (Viagra) 100 mg PO DAILY PRN simvastatin 40 mg PO BEDTIME Do you need a note to return to daycare/school/sports/work: No HPI EP, Bilateral ear wax removal HPI Details 83-year-old male presents to the office for a sick visit. Patient is having an upcoming hearing evaluation. He feels that his hearing has decreased and would like to be checked for cerumen impaction. [facility] Medical History CHF (congestive heart failure) Colon cancer Dementia (~12/26/22) Diabetes Dysuria GBS (Guillain [place] syndrome) Gout History of colon cancer Hyperlipidemia Obesity Pulmonary fibrosis Sarcoidosis Vitamin B12 deficiency Vitamin D deficiency Surgical History History of appendectomy History of colon surgery History of colonoscopy History of gynecomastia History of wrist fracture Hx of cataract surgery Family History Father CHF (congestive heart failure) Alzheimer disease Mother Pancreatic cancer Brother Pancreatic cancer Kidney disease Social History Housing: House Alcohol intake: current Alcohol intake frequency: holidays/special occasions only Patient Tobacco Use Status: Former Tobacco user e-Cigarette/Vaping Use: Never Used Current occupational status: retired Cognitive needs: No Hearing needs: Yes Vision needs: Yes Physical Exam Vital Signs: Last Vital Signs Pulse 78 06/26/23 15:12 BP 120/72 06/26/23 15:12 Pulse Ox 90 L 06/26/23 15:12 Oxygen Delivery Method Room Air 06/26/23 15:12 HEENT Other: Right and left ears: Ear canal has minimal wax. Hearing aids in place. Office Procedures Cerumen Removal From which ear canal was the cerumen removed: bilateral Removal: otoscope w/curette and cerumen loop/spoon Notes: patient tolerated procedure well 55477-Byx Wax Removal by Spoon/Curette Assessment & Plan Assessment & Plan (1) Impacted cerumen of both ears: Code(s): H61.23 - Impacted cerumen, bilateral Plan: Patient tolerated the procedure well. A letter was issued stating he had his ears were irrigated today. Orders: Orders AMB Cerumen Removal Today H61.23 - Impacted cerumen, bilateral Coding Level of Care Code Est Pt Level 3 (26577) Diagnoses Impacted cerumen of both ears H61.23 CPT Codes Office Procedure - CPT: 48322-Pel Wax Removal by Spoon/Curette ([id number])
[2023-06-26 15:12] VITALS: BP 120/72; PULSE 78; O2SAT 90
== END 2023-06-26 15:47 | disposition home or self-care (01) ==
PROVIDERS: PCP Internal Medicine; Visit Provider Internal Medicine
DX: H61.23 Impacted cerumen, bilateral (principal)
CPT/HCPCS: 69210; 99213

== ENCOUNTER 2023-08-14 08:00 | Outpatient (REF) | payer SELFPAY ==
--- NOTE | 2023-08-14 09:13 | MHC.AU.HA3 ---
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 Tube: 2S Earmold/Dome/CShell/SlimTip:Canal lock slim tip SN: [id number] Type of Wax Guard: CeruStop Dispensed By: [facility] Date of Fittin11/06/2018 Left Ear: Jose, , Color, Serial Number: Wally Mcgee [id number] SN: [id number] Color: Maddie Lumber Piler Repair Warranty: 01/18/2022 Lumber Piler Loss and Damage Warranty: 01/18/2022 Battery Size: 312 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 He also reported the wax guards do not stay in the ear molds and the [facility] provider questioned why ear molds were originally recommended. He reportedly had a wax guard in his ear that needed to be flushed out at Urgent Care. Otoscopy clear today. Explained importance of ear molds given severity of hearing loss. Cleaned hearing aids and ear molds. Replaced CeruShields on receivers. Could not replace CeruStops on ear molds as they will not stay in place. Reprogrammed hearing aids to [facility] test at Godwin's request with noted improvement in sound quality in office. Discussed option for new ear molds. Godwin's daughter, Noemi, reported they are also considering new hearing aids, possibly changing manufacturers. Provided brochures for [employer], [employer], and [employer] at Noemi's request. Godwin will use his current ear molds with no CeruStops in the meantime. They will make a decision regarding new hearing aids or new ear molds and call to schedule an appointment when ready to pursue either option. Recommendations: Hearing instrument follow-up or maintenance as needed. Please contact our clinic with any questions or concerns. Diagnosis Code(s): Primary Diagnosis: H90.3 Bilateral Sensorineural Hearing Loss Signature: Provider: Elena Ruiz, [facility]
== END 2023-08-14 08:01 | disposition home or self-care (01) ==
LOC: HO.HAP 08:00
PROVIDERS: Visit Provider Internal Medicine
DX: Z46.1 Encounter for fitting and adjustment of hearing aid (principal)
CPT/HCPCS: 92593

== ENCOUNTER 2023-08-21 14:51 | Outpatient (AMB) | payer MEDICARE, SELFPAY ==
--- NOTE | 2023-08-21 14:55 | A.OFFVIS_ITS ---
Intake Vital Signs 08/21/23 14:58 Weight 195 lb BP 118/66 Blood Pressure Location Lt brachial Position Sitting Pulse 73 Pulse Source Pulse Oximeter Pulse Oximetry (%) 96 Oxygen Delivery Method Nasal Cannula Oxygen Flow Rate 2 Intake Visit Reasons: 4M FOLLOW UP Dementia-Confirmed Intake Note: pt presents today for fup on dementia . no new issues Allergies No Known Allergies Allergy (Verified 08/21/23 15:01) Medication List - Last Reconciled 08/21/23 by MARCELINA Gutiérrez acetaminophen (Tylenol Extra Strength) 500 mg PO Q6H PRN albuterol sulfate 90 mcg/actuation (Ventolin HFA) 1 inh inhalation QID PRN allopurinol 300 mg PO DAILY ascorbate calcium (vitamin C) 500 mg PO DAILY calcium carbonate-vitamin D3 600 mg-25 mcg (1,000 unit) 600 mg 1200mg cholecalciferol (vitamin D3) 10 mcg PO DAILY cholestyramine-aspartame 4 gram (Cholestyramine Light) 2 grams PO BID donepezil 10 mg PO DAILY 90 days dorzolamide-timolol (PF) 2-0.5 % 1 drp ophthalmic (eye) BID fluocinonide 0.05% 1 appl topical BID fluticasone propionate 50 mcg/actuation (Flonase Allergy Relief) 2 sprays intranasal DAILY furosemide 20 mg PO Q OTHER DAY guaifenesin (Mucinex Fast-Max Chest Congestion) 200 mg PO Q4H PRN Lactobacillus acidophilus (Acidophilus capsule) 5 mg PO DAILY latanoprost 0.005% 1 drp ophthalmic (eye) DAILY levocetirizine (Xyzal) 5 mg PO DAILY lidocaine 4% (Aspercreme (lidocaine)) 1 patch topical DAILY PRN loperamide 2 mg PO Q6H PRN mecobalamin (vitamin B12) 1,000 mcg sublingual DAILY memantine 28 mg PO DAILY 90 days miscellaneous medical supply 1 ea miscellaneous .qd multivitamin 1 tab PO DAILY omega-3 fatty acids (Fish Oil Concentrate) 1,000 mg PO DAILY pantoprazole 40 mg PO DAILY prednisone 5 mg PO DAILY sildenafil (Viagra) 100 mg PO DAILY PRN HPI HPI Comments History of Present Illness Details 83-yr-old male presents for f/u visit, a ccompanied by his dtr. Pt and dtr report pt is doing overall better in terms of memory and cognition. Pt is not needing as many reminders. No unsafe behaviors. Pt continues to live at home. Compliant w/ supplemental; O2. He is tolertaing increase in Namenda well. PFSH Medical History History of colon cancer Gout Pulmonary fibrosis CHF (congestive heart failure) Dysuria GBS (Guillain [place] syndrome) Vitamin D deficiency Dementia (~12/26/22) Sarcoidosis Colon cancer Vitamin B12 deficiency Obesity Hyperlipidemia Diabetes Surgical History History of colon surgery Hx of cataract surgery History of wrist fracture History of gynecomastia History of colonoscopy History of appendectomy Family History Father CHF (congestive heart failure) Alzheimer disease Mother Pancreatic cancer Brother Pancreatic cancer Kidney disease Social History Housing: House Alcohol intake: current Alcohol intake frequency: holidays/special occasions only Patient Tobacco Use Status: Former Tobacco user e-Cigarette/Vaping Use: Never Used Current occupational status: retired Cognitive needs: No Hearing needs: Yes Vision needs: Yes Review of Systems Const All systems reviewed & are unremarkable except as noted in HPI and below Physical Exam Vital Signs: Last Vital Signs Pulse 73 08/21/23 14:58 BP 118/66 08/21/23 14:58 Pulse Ox 96 08/21/23 14:58 Oxygen Delivery Method Nasal Cannula 08/21/23 14:58 Oxygen Flow Rate 2 08/21/23 14:58 Const General: cooperative and no acute distress Orientation/consciousness: patient oriented x3 HEENT Head: Yes normocephalic Resp Effort & Inspection: normal respiratory effort and able to speak in complete sentences Neuro Other: Clock drawing- fair clock drawing- [place] and numbers easily, had difficult drawing hands (nella hands for 2:05 versus 1:55 as requested) General: patient oriented x3 and CN's II-XI intact bilaterally Cognition (Neuro): normal cognition Motor exam (neuro): 5/5 motor strength present throughout Psych Appearance: grossly normal Mental Status: mental status grossly normal Speech and movement: Normal speech and movement present Affect: normal affect Attitude: cooperative Thought process: Normal thought process present Thought content: Normal thought content present Insight: Good insight present (Psych) Judgement: Good judgement present (Psych) Assessment & Plan Assessment & Plan (1) Dementia: Onset Date: ~12/26/22 Code(s): F03.90 - Unspecified dementia, unspecified severity, without behavioral disturbance, psychotic disturbance, mood disturbance, and anxiety Plan Reviewed clock drawing- results c/w difficulties w/ executive function. Increase Memantine from 14mg to 21mg qd x's 30 days, then 28mg qd. Continue Donepazil 10mg po qd. F/u w/ Dr Molina pulmonology. For h/o GBS: Avoid future influenza vaccinations. Future considerations- neuro-psych evaluation. f/u in 4-6 months or sooner prn. Medications: New memantine then stop and increase to 28mg qd 21 mg PO DAILY 30 days 30 ea 0RF memantine 28 mg PO DAILY 90 days 90 ea 1RF Discontinued memantine Discontinued Reason: Doctor's Order 14 mg PO DAILY 30 days 30 ea 3RF Coding Level of Care Code Est Pt Level 4 (02454) Diagnoses Dementia F03.90
[2023-08-21 14:58] VITALS: BP 118/66; PULSE 73; O2SAT 96
== END 2023-08-21 15:41 | disposition home or self-care (01) ==
PROVIDERS: PCP Internal Medicine; Visit Provider Nurse Practitioner Family
DX: F03.90 Unspecified dementia, unspecified severity, without behavioral disturbance, psychotic disturbance, mood disturbance, and anxiety (principal)
CPT/HCPCS: 99214

== ENCOUNTER → 2023-08-21 14:51 | Outpatient (BNVA) | payer MEDICARE, SELFPAY | PROVIDERS: PCP Internal Medicine; Visit Provider Nurse Practitioner Family | DX: F03.90 Unspecified dementia, unspecified severity, without behavioral disturbance, psychotic disturbance, mood disturbance, and anxiety (principal) | CPT/HCPCS: 99212 ==

== ENCOUNTER 2023-09-26 13:49 | Outpatient (REF) | payer SELFPAY | END 2023-09-26 13:50 | disposition home or self-care (01) | LOC: HO.HAP 13:49 | PROVIDERS: Visit Provider Internal Medicine | DX: Z46.1 Encounter for fitting and adjustment of hearing aid (principal); H90.3 Sensorineural hearing loss, bilateral | CPT/HCPCS: 92700; V5264 ==

== ENCOUNTER 2023-10-15 09:36 | Outpatient (REF) | payer SELFPAY | END 2023-10-15 09:37 | disposition home or self-care (01) | LOC: HO.HAP 09:36 | PROVIDERS: Visit Provider Internal Medicine | DX: Z13.89 Encounter for screening for other disorder (principal) ==

== ENCOUNTER 2023-10-17 14:35 | Outpatient (REF) | payer SELFPAY | END 2023-10-17 14:36 | disposition home or self-care (01) | LOC: HO.HAP 14:35 | PROVIDERS: Visit Provider Internal Medicine | DX: Z46.1 Encounter for fitting and adjustment of hearing aid (principal); H90.3 Sensorineural hearing loss, bilateral | CPT/HCPCS: 92592 ==